=== PATIENT | male | born 1980 | race Caucasian/White ===

== ENCOUNTER 2016-08-17 13:53 | Emergency (ER) | payer OTHER ==
[~2016-08-17] VITALS: Ht 182.9 cm; Wt 98.9 kg
[~2016-08-17 13:53] MED LIST: KEFLEX500 MG PO; NAPROSYN500 MG PO; ZANAFLEX4 MG PO
[2016-08-17] MEDS ORDERED: PREDNISONE 20 M20 MG PO (14:56)
[2016-08-17] MEDS ORDERED: TESSALON PERLE100 MG PO (14:56)
[2016-08-17] MEDS ORDERED: DUONEB 2.5-0.5 M3 ML INH (14:56)
[2016-08-17 15:18] VITALS: BP 114/80
== END 2016-08-17 15:20 | disposition home or self-care (01) ==
LOC: ER 13:53
DX: J40 Bronchitis, not specified as acute or chronic (principal)

== ENCOUNTER 2018-10-05 10:45 | Emergency (ER) | payer OTHER ==
[~2018-10-05] VITALS: Ht 182.9 cm; Wt 111.1 kg
[~2018-10-05 10:45] MED LIST changes: +DUONEB 2.5-0.5 M3 ML INH; +ERYTHROMYCIN E3.5 G3 OPHTHALMIC; +PRED FORTE 1% EY5 M1 OPHTHALMIC; +PREDNISONE 20 M20 MG PO; +TESSALON PERLE100 MG PO
[2018-10-05 11:11] LABS: URINE BILIRUBIN NEGATIVE (Negative); URINE BLOOD TRACE (Negative); URINE CLARITY CLEAR; URINE COLOR YELLOW; URINE GLUCOSE-RANDOM* NEGATIVE (Negative); URINE KETONES NEGATIVE (Negative); URINE LEUKOCYTES-REFLEX NEGATIVE (Negative); URINE NITRITE-REFLEX NEGATIVE (Negative); URINE PROTEIN (DIPSTICK) NEGATIVE (Negative); URINE UROBILINOGEN 0.2 E.U./dl (0.2-1.0)
[2018-10-05 11:44] LABS: ABSOLUTE NEUTROPHILS 4.4 thou/uL (1.4-8.2); BASOPHILS 0.5 % (0.0-2.0); HEMATOCRIT 41.8 % (42.0-52.0); HEMOGLOBIN 14.7 gm/dL (14.0-18.0); LYMPHOCYTES 25.1 % (24.0-44.0); MCH 31.8 pg (26.0-34.0); MCV 90.7 fL (80.0-100.0); MONOCYTES 8.1 % (1.0-8.0); PLATELET COUNT 223 thou/uL (150-400); POLYS 60.3 % (36.0-66.0); RBC 4.61 mil/uL (4.50-6.00); WBC 7.3 thou/uL (4.0-11.0)
[2018-10-05 11:56] LABS: CREATININE 1.1 mg/dL (0.7-1.3); POTASSIUM 3.8 mmol/L (3.5-5.1)
[2018-10-05 12:00] LABS: ALBUMIN 4.1 g/dL (3.4-5.0); TOTAL BILIRUBIN 0.4 mg/dL (<0.1-1.0); TOTAL PROTEIN 8.1 g/dL (6.4-8.2)
[2018-10-05] MEDS ORDERED: ONDANSETRON HCL4 M2 PO (14:10)
[2018-10-05] MEDS ORDERED: CIPRO500 MG PO (14:10)
[2018-10-05] MEDS ORDERED: NORCO 10-325 T1 EACH PO (14:10)
[2018-10-05] MEDS ORDERED: FLAGYL500 M1 PO (14:10)
[2018-10-05 14:24] VITALS: BP 114/75
== END 2018-10-05 14:24 | disposition home or self-care (01) ==
LOC: ER 10:45
PROVIDERS: Physician Assistant
DX: K52.9 Noninfective gastroenteritis and colitis, unspecified (principal)